=== PATIENT | female | born 1990 | race Caucasian/White ===

== ENCOUNTER → 2016-06-11 | Outpatient (CLI) | payer MEDICAID ==
--- NOTE | 2016-06-11 17:51 | Diagnostic Imaging Report ---
EXAMINATION: OB ultrasound. INDICATION: survey. FINDINGS: heart rate is 158 beats per minute. The placenta is posterior. No placenta previa. The cervix is long and closed. No ventriculomegaly. The four-chamber view appears unremarkable. Posterior fossa appear unremarkable. Cord insertion, kidneys, bladder and two umbilical arteries are demonstrated. The upper and mid spine appear unremarkable. The lower spine is not well seen. growth parameters are biparietal diameter at 21 weeks and 0 days, head circumference at 20 weeks and 6 days, abdominal circumference at 21 weeks and femur length also at 21 weeks averaging at 21 weeks and 0 days. This is compatible with gestational age of 20 weeks and 6 days based provided JORGE of 10/23/[address] Tuttle. IMPRESSION: The lower spine is not well seen. Short-term followup is recommended. Dictated by: Dictated on workstation # [id number]
== END ==
LOC: RAD 12:52
PROVIDERS: ATTEND Obstetrics & Gynecology
DX: Z34.92 Encounter for supervision of normal pregnancy, unspecified, second trimester (principal)
CPT/HCPCS: 76805

== ENCOUNTER 2016-10-08 11:32 | Inpatient (IN) | payer MEDICAID ==
[~2016-10-08] VITALS: Ht 167.6 cm; Wt 103.0 kg
[2016-10-08] VITALS (20 sets, daily range): BP systolic 123–163; BP diastolic 69–112
[2016-10-08] MEDS ORDERED: MINERAL OIL CONCENTRATE 99.9% 15 ML UDC TOP PRN (12:15)
[2016-10-08] MEDS ORDERED: MISOPROSTOL 100 MCG (CYTOTEC) TAB PO ONE (12:15)
[2016-10-08] MEDS ORDERED: TERBUTALINE INJ 1 MG/ML (BRETHINE) AMP SC PRN (12:15)
[2016-10-08 13:14] LABS: BASOPHILS % (AUTO) 0 % (0-10); EOSINOPHILS # (AUTO) 0.2 10^3/uL (0.0-0.3); EOSINOPHILS % (AUTO) 2 % (0-10); LYMPHOCYTES # (AUTO) 1.8 X 10^3 (1.0-4.0); LYMPHOCYTES % (AUTO) 15 % (12-44); MEAN CORPUSCULAR HEMOGLOBIN 31 PG (25-34); MEAN CORPUSCULAR HGB CONC 33 G/DL (32-36); MEAN CORPUSCULAR VOLUME 93 FL (80-99); MEAN PLATELET VOLUME 9.4 FL (7.4-10.4); MONOCYTES # (AUTO) 0.5 X 10^3 (0.0-1.0); MONOCYTES % (AUTO) 5 % (0-12); NEUTROPHILS # (AUTO) 9.3 X 10^3 (1.8-7.8); NEUTROPHILS % (AUTO) 78 % (42-75); PLATELET COUNT 231 10^3/uL (130-400); RED BLOOD COUNT 3.71 10^6/uL (4.35-5.85); RED CELL DISTRIBUTION WIDTH 15.3 % (10.0-14.5); WHITE BLOOD COUNT 11.9 10^3/uL (4.3-11.0)
[2016-10-08] MEDS: D5 LR IV SOLUTION 1,000 ML IV SCH ×3 (13:23→22:55)
[2016-10-08 13:32] LABS: ALANINE AMINOTRANSFERASE 24 U/L (0-55); ALBUMIN 3.1 GM/DL (3.2-4.5); ANION GAP 9 MMOL/L (5-14); ASPARTATE AMINO TRANSFERASE 15 U/L (5-34); BILIRUBIN,TOTAL 0.3 MG/DL (0.1-1.0); BLOOD UREA NITROGEN 9 MG/DL (7-18); BUN/CREATININE RATIO 11; CALCIUM 9.2 MG/DL (8.5-10.1); CARBON DIOXIDE 22 MMOL/L (21-32); CHLORIDE 107 MMOL/L (98-107); GFR ESTIMATED > 60; GLUCOSE 130 MG/DL (70-105); POTASSIUM 3.9 MMOL/L (3.6-5.0); SODIUM 138 MMOL/L (135-145); TOTAL PROTEIN 5.8 GM/DL (6.4-8.2)
[2016-10-08] MEDS ORDERED: D5 LR IV SOLUTION 1,000 ML IV SCH (13:45)
[2016-10-08] MEDS: CATHETER FLUSH 10 ML SYR IV SCH ×2 (14:00→22:00)
[2016-10-08] MEDS: MISOPROSTOL 100 MCG (CYTOTEC) TAB PO SCH (17:55)
[2016-10-09] VITALS (50 sets, daily range): BP systolic 104–183; BP diastolic 61–95
[2016-10-09] MEDS: MISOPROSTOL 100 MCG (CYTOTEC) TAB PO SCH ×4 (00:21→08:40)
[2016-10-09] MEDS: CATHETER FLUSH 10 ML SYR IV SCH (06:18)
[2016-10-09] MEDS: D5 LR IV SOLUTION 1,000 ML IV SCH ×3 (06:56→14:58)
[2016-10-09] MEDS ORDERED: fentaNYL INJECTION 100 MCG/2 ML AMP IVP PRN (12:30)
[2016-10-09] MEDS ORDERED: LACTATED RINGERS 1,000 ML IV ONE ×2 (12:55→16:39)
[2016-10-09] MEDS ORDERED: SUFENTA 0.6MCG/ML BUPIVA 0.125 100 ML ONE (12:55)
[2016-10-09] MEDS: OXYTOCIN/NORMAL SALINE 500 ML IV SCH ×2 (13:03→20:16)
[2016-10-09] MEDS ORDERED: EPIDURAL (SUFENTA 0.6MCG/ML BUPIVA 0.125%) 100 ML BAG EPI SCH (16:45)
[2016-10-09] MEDS ORDERED: ONDANSETRON 4 MG/2 ML (SDV) Z0FRAN IV PRN (16:45)
[2016-10-09] MEDS ORDERED: NALOXONE 0.4 MG/ML 1 ML (NARCAN) VIAL IV PRN (16:45)
[2016-10-09] MEDS ORDERED: FAMOTIDINE 20MG/2ML IV (PEPCID) IV NR (17:15)
[2016-10-09] MEDS ORDERED: CATHETER FLUSH 10 ML SYR IV PRN (17:15)
[2016-10-09] MEDS ORDERED: CITRIC ACID/SOB CIT (BICITRA) 30 ML UDC PO NR (17:15)
[2016-10-09] MEDS ORDERED: LACTATED RINGERS 1,000 ML IV PRN ×2 (17:15)
[2016-10-09] MEDS ORDERED: METOCLOPRAMIDE INJ 10 MG/2 ML (REGLAN) IV NR (17:15)
--- NOTE | 2016-10-09 17:22 | Progress Note-Standard ---
Standard Progress Note Progress Notes/Assess & Plan Date Seen by Provider: Oct 09, 2016 Time Seen by Provider: 15:15 Progress/Assessment & Plan PAtient has had 24 hours of misoprostol. Induced for preeclampsia. AROM at 1300 of copious clear fluid. Baby was very high but vertex to oblique. Now on exam she is transverse/breech. BP 138/84 well being reassuring. Contractions q 4 hours. Will plan primary section. Risks associated with this are bleeding, infection, injury to bowel bladder and ureter. Consent signed. Ancef and Zithromax given due to ROM and prophylaxis. Peds - [facility] SHARATH FAUST DO Oct 09, 2016 5:22 pm
[2016-10-09] MEDS ORDERED: fentaNYL INJECTION 100 MCG/2 ML AMP ONE (17:29)
[2016-10-09] MEDS ORDERED: LIDOCAINE PF 2% 5 ML (XYLOCAINE) VIAL ONE (17:29)
[2016-10-09] MEDS ORDERED: BUPIVACAINE 0.25% 30 ML (SENSORCAINE) VIAL ONE (17:29)
[2016-10-09] MEDS ORDERED: BUPIVACAINE 0.5% 30 ML (SENSORCAINE) VIAL ONE (17:29)
[2016-10-09] MEDS ORDERED: AZITHROMYCIN INJECTION 500 MG in NS (IVPB) 250 ML IV NR (17:30)
[2016-10-09] MEDS ORDERED: ceFAZolin 2 GM/50 ML NS 50 ML IV NR (17:30)
[2016-10-09] MEDS ORDERED: OXYTOCIN/NORMAL SALINE 500 ML IV ONE (18:33)
[2016-10-09] MEDS ORDERED: TETANUS,DIPTH,PERTUSS P/F (BOOSTRIX) 0.5 ML VIAL IM SCH (19:00)
[2016-10-09] MEDS ORDERED: MEASLES,MUMPS,RUBELLA 1 EA INJ SC SCH (19:00)
--- NOTE | 2016-10-09 19:04 | Cesarean Section Operative ---
Procedure Procedure Note Pre-operative Diagnosis: Linn Vaca is a 26 /Para 1/ , Gestational Age 38 weeks, preeclampsia, malpresentation Post-operative Diagnosis: same [ Procedure: [primary low transverse section with J incision on the left Physician: SHARATH FAUST Estimated blood loss: 600 mL Disposition: stable Anesthesia: Epidural Findings: Viable female , Apgars 3/7/8, weight 7#8oz, intact placenta, 3vc, normal appearing uterus, tubes, and ovaries. Indications:Linn Vaca is a 26 /Para 1/ ,Gestational Age 38 weeks , preeclampsia, malpresentation. Patient was admitted for induction/ cervical ripening from clinic on 10/08/16. BP in clinic 155/85 and 2+ proteinuria. She had misoprostol for 24 hours and then had AROM at approximately 1230. At that time, position was thought to be vertex/oblique. She was started on pitocin and made progress but when examined at approximatley 1700, there was an abnormal presentation. Bedside US showed head to be on the left in a transverse, back anterior position and the right elbow was presenting. Procedure Details: The patient was seen in pre-op and the procedure was discussed with the patient in full, including the risks, benefits, and alternatives. All questions were answered. The patient was taken to the operating room and a time out was performed, verifying patient and procedure. After epidural anesthesia was redosed by the anesthsia providers, the patient was placed in the dorsal supine with leftward tilt for uterine displacement.~ Her abdomen was then prepped and draped in the typical sterile fashion. A Pfannenstiel skin incision was made using a scalpel and carried down through the underlying fascia. The fascia was incised in the midline and tented up using Tyesha clamps. On both the inferior and superior fascia side the rectus muscle was dissected off bluntly and sharply using Mccormick scissors. The peritoneum was identified and entered bluntly in the midline. This was then stretched laterally using manual strength. After entering the abdominal cavity and confirming lack of intraperitoneal adhesions, a extra large Johnson retractor was placed and the lower uterine segment was visualized. A scalpel was utilized to make a low transverse uterine incision. The back and elbow were presenting so the baby was reduced to assist delivery of the baby. I could not deliver the baby in the breech presentation but was finally able to rotate the head to be delivered. I then made a J incision from the left side of the uterine incision. I placed a silastic suction and then The 's head was grasped and brought to the level of the incision. Fundal pressure was applied and was delivered without difficulty. Mouth and nares were suctioned with bulb suction. After the umbilical cord was clamped and cut, the infant was handed off to the pediatric staff. A sample of cord blood was then obtained. Cord gas was sent. The placenta was delivered intact via uterine massage. The uterus was exteriorized and cleared of all clots and debris. The J portion of the incision was closed in 3 running layers and then uterine incision was closed using 0 Vicryl in a running fashion. A second imbricated layer was placed using 0 Vicryl in a running fashion as well. The uterus was flexed forward and the posterior rectouterine space was inspected and cleared of all clots and debris. Again the hysterotomy site was examined and hemostasis was observed. The bilateral tubes and ovaries appeared normal. The uterus was placed back into the abdominal cavity and abdominal gutters were cleared of all clots and debris. A final check of the uterine incision showed it to be hemostatic. The peritoneum was closed using 3-0 Vicryl in a running fashion. The fascia was closed with 0 Vicryl in a running fashion. The subcutaneous space was hemostatic , and irrigated. The subcutaneous space was closed with 3-0 Vicryl in several single interrupted stitches. The skin was then closed using 4-0 Monocryl in a running subcuticular fashion. The skin edges were reapproximated together and were hemostatic. A pressure dressing was applied. All sponge, lap and needle counts were correct at the end of the procedure per nursing. Vitals - Labs Vital Signs - I&O Vital Signs Date Time Temp Pulse Resp B/P (MAP) Pulse Ox O2 Delivery O2 Flow Rate FiO2 10/09/16 14:25 84 20 150/80 Room Air 10/09/16 14:20 96 20 136/91 Room Air 10/09/16 14:05 85 20 142/86 Room Air 10/09/16 13:50 88 20 147/85 Room Air 10/09/16 13:35 89 20 129/83 Room Air 10/09/16 13:25 79 20 153/93 Room Air 10/09/16 13:00 83 20 140/90 Room Air 10/09/16 12:30 85 20 124/87 Room Air 10/09/16 12:05 89 20 142/93 Room Air 10/09/16 12:00 96.7 104 20 136/94 Room Air 10/09/16 10:30 91 20 128/88 Room Air 10/09/16 10:00 89 20 139/86 Room Air 10/09/16 09:30 90 20 117/82 Room Air 10/09/16 09:00 103 20 128/88 Room Air 10/09/16 08:30 84 20 135/82 Room Air 10/09/16 08:00 88 20 131/93 Room Air 10/09/16 07:00 97.4 95 18 140/85 Room Air 10/09/16 05:32 84 18 127/90 Room Air 10/09/16 05:04 79 18 137/90 Room Air 10/09/16 04:15 82 18 139/87 Room Air 10/09/16 04:03 96.0 100 18 138/91 Room Air 10/09/16 03:30 95 18 121/76 Room Air 10/09/16 03:00 83 18 142/83 Room Air 10/09/16 02:30 84 18 134/84 Room Air 10/09/16 02:00 82 18 133/76 Room Air 10/09/16 01:30 89 18 129/82 Room Air 10/09/16 01:00 83 18 137/79 Room Air 10/09/16 00:23 100 18 125/78 Room Air 10/09/16 00:17 96.2 90 18 127/76 Room Air 10/08/16 23:29 94 18 131/92 Room Air 10/08/16 22:17 88 18 135/78 Room Air 10/08/16 22:05 97 18 138/82 Room Air 10/08/16 21:33 101 18 131/80 Room Air 10/08/16 21:05 96 20 127/83 Room Air 10/08/16 20:34 99 20 138/88 Room Air 10/08/16 20:04 94 18 128/75 Room Air 10/08/16 19:33 96.6 96 20 125/77 Room Air 10/08/16 19:00 99 20 136/76 Room Air I & O 10/09/16 07:00 Intake Total 2400 ml Balance 2400 ml SHARATH FAUST DO Oct 09, 2016 19:04
[2016-10-09] MEDS ORDERED: HYDROcodone/APAP 5 MG/325 MG (LORTAB) TAB PO PRN (19:15)
[2016-10-09] MEDS ORDERED: HYDROmorphone (DILAUDID) 2 MG/ML VIAL IVP PRN (19:15)
[2016-10-09] MEDS ORDERED: CATHETER FLUSH 10 ML SYR IV SCH (22:00)
[2016-10-10] VITALS: BP 118/78
[2016-10-10] MEDS: KETOROLAC 30 MG/ML VIAL IVP SCH ×3 (00:01→11:51)
[2016-10-10 04:35] VITALS: BP 125/74
[2016-10-10 06:44] LABS: BASOPHILS % (AUTO) 0 % (0-10); EOSINOPHILS # (AUTO) 0.1 10^3/uL (0.0-0.3); EOSINOPHILS % (AUTO) 1 % (0-10); LYMPHOCYTES # (AUTO) 2.6 X 10^3 (1.0-4.0); LYMPHOCYTES % (AUTO) 19 % (12-44); MEAN CORPUSCULAR HEMOGLOBIN 30 PG (25-34); MEAN CORPUSCULAR HGB CONC 32 G/DL (32-36); MEAN CORPUSCULAR VOLUME 95 FL (80-99); MEAN PLATELET VOLUME 9.6 FL (7.4-10.4); MONOCYTES % (AUTO) 8 % (0-12); NEUTROPHILS # (AUTO) 9.7 X 10^3 (1.8-7.8); NEUTROPHILS % (AUTO) 72 % (42-75); PLATELET COUNT 211 10^3/uL (130-400); RED BLOOD COUNT 3.19 10^6/uL (4.35-5.85); RED CELL DISTRIBUTION WIDTH 15.6 % (10.0-14.5); WHITE BLOOD COUNT 13.4 10^3/uL (4.3-11.0)
--- NOTE | 2016-10-10 08:55 | Discharge Inst-Women's Service ---
Discharge Inst-Women's Serv Depart Medication/Instructions New, Converted or Re-Newed RX: RX on Chart Consults/Follow Up Additional Follow Up: Yes Orders/Referrals Dr. Tuttle in 7-10 days and in 6 weeks. Activity Activity: Activity as Tolerated Driving Instructions: No Driving for 1 Week NO SMOKING: NO SMOKING Nothing Inside Vagina: No Douching, No [place], No Tampons Diet Discharge Diet: No Restrictions Symptoms to Report to : Bleeding Excessive, Pain Increased, Fever Over 101 Degrees F, Vaginal Bleeding Increase, Questions/Concerns For Any Problems or Questions: Contact Your Physician Skin/Wound Care Infection Signs and Symptoms: Increased Redness, Foul Odor of Wound, Increased Drainage, Skin Itchy or Has a Rash, Increased Swelling, Temperature Above 101 F Operative Area Clean and Dry: Keep Incision Clean/Dry Stitches/Inderjit/Dermabond: Dermabond, Care of Stitches Bathing Instructions: OSITO Wolf DO Oct 10, 2016 08:55
[2016-10-10] MEDS ORDERED: IBUP-1773 PO (08:57)
[2016-10-10] MEDS ORDERED: FERR-74 PO (08:57)
[2016-10-10] MEDS ORDERED: HYDR-3812 PO (08:57)
[2016-10-10] MEDS ORDERED: DOCU100C37 PO (08:57)
--- NOTE | 2016-10-10 09:02 | Progress Note-Standard ---
Standard Progress Note Progress Notes/Assess & Plan Date Seen by Provider: Oct 10, 2016 Time Seen by Provider: 08:50 Progress/Assessment & Plan Patient doing well this AM without complaint. Denies heavy lochia. Ambulating and voiding freely, ma out this morning. Vital Sign - Last 24 Hours 10/09/16 10/09/16 10/09/16 10/09/16 09:30 10:00 10:30 12:00 Temp 96.7 Pulse 90 89 91 104 Resp 20 20 20 20 B/P (MAP) 117/82 139/86 128/88 136/94 O2 Delivery Room Air Room Air Room Air Room Air 10/09/16 10/09/16 10/09/16 10/09/16 12:05 12:30 13:00 13:25 Pulse 89 85 83 79 Resp 20 20 20 20 B/P (MAP) 142/93 124/87 140/90 153/93 O2 Delivery Room Air Room Air Room Air Room Air 10/09/16 10/09/16 10/09/16 10/09/16 13:35 13:50 14:05 14:20 Pulse 89 88 85 96 Resp 20 20 20 20 B/P (MAP) 129/83 147/85 142/86 136/91 O2 Delivery Room Air Room Air Room Air Room Air 10/09/16 10/09/16 10/09/16 10/09/16 14:25 14:45 15:00 15:15 Pulse 84 82 86 77 Resp 20 20 20 20 B/P (MAP) 150/80 138/82 155/86 157/79 O2 Delivery Room Air Room Air Room Air Room Air 10/09/16 10/09/16 10/09/16 10/09/16 15:30 15:45 16:00 16:23 Pulse 93 85 85 88 Resp 20 20 20 20 B/P (MAP) 139/93 144/95 123/88 143/82 O2 Delivery Room Air Room Air Room Air Room Air 10/09/16 10/09/16 10/09/16 10/09/16 16:27 16:30 16:35 16:40 Temp 98.6 Pulse 96 96 116 113 Resp 18 18 16 16 B/P (MAP) 146/82 148/93 152/61 117/79 Pulse Ox 98 98 99 O2 Delivery Room Air Room Air Room Air Room Air 710/09/16 10/09/16 10/09/16 16:45 16:50 16:55 17:00 Pulse 130 121 114 120 Resp 16 16 16 16 B/P (MAP) 124/70 176/67 134/62 136/84 Pulse Ox 99 99 100 100 O2 Delivery Room Air Room Air Room Air Room Air 10/09/16 10/09/16 10/09/16 10/09/16 17:05 17:10 17:15 17:30 Pulse 131 121 120 112 Resp 18 18 20 18 B/P (MAP) 138/65 151/86 144/80 183/93 Pulse Ox 100 100 99 O2 Delivery Room Air Room Air Room Air Room Air 10/09/16 10/09/16 10/10/16 10/10/16 17:45 20:05 00:00 04:35 Temp 98.4 98.0 98.2 Pulse 110 93 107 106 Resp 18 18 18 18 B/P (MAP) 129/78 104/72 118/78 125/74 Pulse Ox 98 97 97 O2 Delivery Room Air Room Air Room Air Room Air Intake and Output 10/09/16 10/09/16 10/10/16 15:00 23:00 07:00 Intake Total 1000 ml 650 ml 1250 ml Output Total 750 ml 425 ml Balance 1000 ml -100 ml 825 ml Incision: c/d/i Laboratory Tests Test 10/10/16 06:23 Range/Units White Blood Count 13.4 H 4.3-11.0 10^3/uL Red Blood Count 3.19 L 4.35-5.85 10^6/uL Hemoglobin 9.7 L 11.5-16.0 G/DL Hematocrit 30 L 35-52 % Mean Corpuscular Volume 95 80-99 FL Mean Corpuscular Hemoglobin 30 25-34 PG Mean Corpuscular Hemoglobin Concent 32 32-36 G/DL Red Cell Distribution Width 15.6 H 10.0-14.5 % Platelet Count 211 130-400 10^3/uL Mean Platelet Volume 9.6 7.4-10.4 FL Neutrophils (%) (Auto) 72 42-75 % Lymphocytes (%) (Auto) 19 12-44 % Monocytes (%) (Auto) 8 0-12 % Eosinophils (%) (Auto) 1 0-10 % Basophils (%) (Auto) 0 0-10 % Neutrophils # (Auto) 9.7 H 1.8-7.8 X 10^3 Lymphocytes # (Auto) 2.6 1.0-4.0 X 10^3 Monocytes # (Auto) 1.0 0.0-1.0 X 10^3 Eosinophils # (Auto) 0.1 0.0-0.3 10^3/uL Basophils # (Auto) 0.0 0.0-0.1 10^3/uL Diagnosis: POD 1 PLTCS Acute blood loss anemia Preeclampsia- bp now WNL since delivery P: Continue PO care If continues to do well will consider dc tomorrow OSITO SUMMERS DO Oct 10, 2016 09:02
[2016-10-10 09:18] VITALS: BP 123/79
[2016-10-10] MEDS: FERROUS SULF 325 MG (IRON) TAB PO SCH (09:22)
[2016-10-10] MEDS: DOCUSATE SODIUM 100 MG (COLACE) CAP PO SCH ×2 (09:22→19:36)
[2016-10-10] MEDS: PRENATAL VITAMIN 1 EA TAB PO SCH (09:22)
[2016-10-10 11:47] VITALS: BP 126/86
[2016-10-10 17:52] VITALS: BP 124/87
[2016-10-10] MEDS: IBUPROFEN 600 MG (MOTRIN) TAB PO PRN (17:55)
[2016-10-10] MEDS ORDERED: IBUPROFEN 800 MG (MOTRIN) TAB PO SCH (19:00)
[2016-10-10 19:35] VITALS: BP 139/86
[2016-10-11 02:10] VITALS: BP 125/79
[2016-10-11] MEDS: IBUPROFEN 600 MG (MOTRIN) TAB PO PRN ×2 (06:06)
--- NOTE | 2016-10-11 08:40 | Progress Note-Standard ---
Standard Progress Note Progress Notes/Assess & Plan Date Seen by Provider: Oct 11, 2016 Time Seen by Provider: 08:25 Progress/Assessment & Plan Patient doing well this AM without complaint. Denies heavy lochia. Ambulating and voiding freely. Vital Sign - Last 24 Hours 10/10/16 10/10/16 10/10/16 10/10/16 09:18 11:47 17:52 19:35 Temp 97.0 97.4 96.7 98.2 Pulse 97 91 87 91 Resp 18 18 18 18 B/P (MAP) 123/79 126/86 124/87 139/86 Pulse Ox 94 96 98 O2 Delivery Room Air Room Air Room Air Room Air 10/11/16 02:10 Temp 97.8 Pulse 92 Resp 18 B/P (MAP) 125/79 Pulse Ox 97 O2 Delivery Room Air Intake and Output 10/10/16 10/10/16 10/11/16 15:00 23:00 07:00 Intake Total 1240 ml 1050 ml Output Total 200 ml 1250 ml Balance 1040 ml -200 ml Incision: c/d/i Diagnosis: POD 2 PLTCS Acute blood loss anemia P: Continue PO care discharge today with pp/po precautions OSITO SUMMERS DO Oct 11, 2016 8:40 am
[2016-10-11 09:15] VITALS: BP 114/80
[2016-10-11] MEDS: FERROUS SULF 325 MG (IRON) TAB PO SCH (09:16)
[2016-10-11] MEDS: PRENATAL VITAMIN 1 EA TAB PO SCH (09:16)
[2016-10-11] MEDS: DOCUSATE SODIUM 100 MG (COLACE) CAP PO SCH (09:16)
--- NOTE | 2016-10-28 09:58 | Discharge Summary ---
Diagnosis/Chief Complaint Date of Admission Oct 08, 2016 at 11:32 Date of Discharge Oct 11, 2016 at 13:00 Discharge Date: Oct 11, 2016 Discharge Time: 13:00 Admission Diagnosis Admission Diagnosis 38 week IUP, preeclampsia, malpresentation Discharge Diagnosis Same Post op day 2 primary low transverse section Reason Hospital Visit Delivery Discharge Summary Procedures: Primary low transverse section Discharge Physical Examination Allergies: Coded Allergies: No Known Drug Allergies (Unverified , 07/27/11) General Appearance: Alert, Oriented X3 Cardiovascular: Regular Rate Abdominal: Normal Bowel Sounds Hospital Course Patient was admitted for induction due to worsening preeclampsia 38 weeks. Failed induction followed by primary was performed. Patient's postoperative course this was fairly retain her blood pressures remained relatively stable however labile at times. She did have postoperative acute blood loss anemia. And was started on iron postop day one. Pain was well- controlled postop day 1. The patient was continued to ambulate and she was voiding freely. On postoperative day 2 blood pressures continue to be fairly stable, pain was well-controlled, she was ambulating and voiding freely. Discharge was facilitated on postop day 2 due to clinical stability. Routine postoperative and precautions reviewed with the patient as well as preeclampsia precautions. Discussion & Recommendations Follow-up with Dr. Tuttle in 1 week for incision check and blood pressure evaluation. 6 week evaluation scheduled as well Discharge Condition at discharge Stable Instructions to patient/family Please see electonic discharge instructions given to patient. Discharge Medications Reviewed and agree with Discharge Medication list on patient's Discharge Instruction sheet Clinical Quality Measures DVT/VTE Risk/Contraindication: Risk Factor Score Per Nursin RFS Level Per Nursing on Admit: 1=Low/No VTE PPX OSITO SUMMERS DO Oct 28, 2016 09:58
== END 2016-10-11 13:00 | disposition home or self-care (01) | DRG 765 ==
LOC: LDRP 11:32
PROVIDERS: ADMIT Obstetrics & Gynecology; ATTEND Obstetrics & Gynecology
PROC: 3E0P7GC Introduction of Other Therapeutic Substance into Female Reproductive, Via Natural or Artificial Opening (ICD-10-PCS; 2016-10-08)
PROC: 10D00Z1 Extraction of Products of Conception, Low, Open Approach (ICD-10-PCS; principal; 2016-10-09 17:54)
DX: O14.94 Unspecified pre-eclampsia, complicating childbirth (principal); O90.81 Anemia of the puerperium; D62 Acute posthemorrhagic anemia; Z3A.38 38 weeks gestation of pregnancy; Z37.0 Single live birth; Z23 Encounter for immunization
CPT/HCPCS: 36415; 80053; 85025; 86850; 86900; 86901; 88307; 90707; 90715; 94664

== ENCOUNTER 2019-05-13 10:35 | Day surgery (SDC) | payer MEDICAID ==
[2019-05-13] VITALS (8 sets, daily range): BP systolic 128–138; BP diastolic 79–100
[~2019-05-13] VITALS: Ht 172.7 cm; Wt 84.8 kg
[~2019-05-13 10:35] MED LIST: ACHD5005 PO; DOCU100C37 PO; FERR325T18 PO; IBUP-1773 PO
[2019-05-13] MEDS ORDERED: NS IV 1000 ML 1,000 ML IV SCH (11:00)
[2019-05-13 11:01] LABS: BASOPHILS % (AUTO) 0 % (0-10); CLARITY,URINE CLEAR; COLOR,URINE YELLOW; EOSINOPHILS % (AUTO) 0 % (0-10); GLUCOSE, URINE (UA) NEGATIVE (NEGATIVE); HEMATOCRIT 44 % (35-52); HEMOGLOBIN 14.7 G/DL (11.5-16.0); KETONES,URINE 1+ (NEGATIVE); LEUKOCYTE ESTERASE ,URINE TRACE (NEGATIVE); LYMPHOCYTES # (AUTO) 1.6 X 10^3 (1.0-4.0); LYMPHOCYTES % (AUTO) 11 % (12-44); MEAN CORPUSCULAR HEMOGLOBIN 30 PG (25-34); MEAN CORPUSCULAR HGB CONC 33 G/DL (32-36); MEAN CORPUSCULAR VOLUME 90 FL (80-99); MEAN PLATELET VOLUME 9.5 FL (7.4-10.4); MONOCYTES # (AUTO) 1.1 X 10^3 (0.0-1.0); MONOCYTES % (AUTO) 7 % (0-12); NEUTROPHILS # (AUTO) 12.8 X 10^3 (1.8-7.8); NEUTROPHILS % (AUTO) 83 % (42-75); NITRITE,URINE NEGATIVE (NEGATIVE); PH,URINE 5.5 (5-9); PLATELET COUNT 383 10^3/uL (130-400); PROTEIN,URINE 2+ (NEGATIVE); RED CELL DISTRIBUTION WIDTH 12.9 % (10.0-14.5); WHITE BLOOD COUNT 15.6 10^3/uL (4.3-11.0)
--- NOTE | 2019-05-13 11:02 | ED GI ---
General Chief Complaint: Abdominal/GI Problems Stated Complaint: N/V Nursing Triage Note: Pt amb to rm 7 with complaint of difficulty swallwoing since thursday. states has been dealing with similar symptoms for a year. Sepsis Screen: No Definite Risk Source of Information: Patient Exam Limitations: No Limitations History of Present Illness Date Seen by Provider: May 13, 2019 Time Seen by Provider: 10:57 Initial Comments To ER per private vehicle accompanied by mother with reports of difficulty swallowing and regurgitation since Thursday (today is Thursday). She's not had any solid food since Thursday, up until today even water wouldn't go down. She states that she would swallow it, it would sit for about 2 or 3 minutes and she would regurgitate it. She denies any nausea or abdominal pain, simply feels like it will go down. Mother reports that she's been having difficulty swallowing foods over the course of the past year. No fevers or chills. She did develop some low back pain today. No dysuria. She went to the clinic yesterday and received a steroid shot as her throat was reddened and this was believed to be the cause of her troubles. Timing/Duration: Getting Worse Severity/Quality: Moderate Radiation: No Radiation Activities at Onset: None Associated Symptoms: Back Pain, Nausea/Vomiting Allergies and Home Medications Allergies Coded Allergies: No Known Drug Allergies (Unverified , 07/27/11) Home Medications Ferrous Sulfate 325 Mg Tablet, 325 MG PO DAILY@0700 Prescribed by: OSITO SUMMERS on 10/10/16 0857 Pantoprazole Sodium 40 Mg Tablet.dr, 40 MG PO DAILY Prescribed by: ED MARTIN on 05/13/19 1557 Sucralfate 1 Gm Tablet, 1 GM PO QID Prescribed by: ED MARTIN on 05/13/19 1557 Sulfamethoxazole/Trimethoprim 1 Each Tablet, 1 EACH PO BID Prescribed by: ED MARTIN on 05/13/19 1600 Patient Home Medication List Home Medication List Reviewed: Yes Review of Systems Review of Systems Constitutional: see HPI; No chills, No fever EENTM: No Symptoms Reported Respiratory: No Symptoms Reported Cardiovascular: No Symptoms Reported Gastrointestinal: See HPI, Difficulty Swallowing, Poor Fluid Intake Genitourinary: No Symptoms Reported Musculoskeletal: see HPI, back pain Skin: no symptoms reported Psychiatric/Neurological: No Symptoms Reported Endocrine: No Symptoms Reported Hematologic/Lymphatic: No Symptoms Reported Past Nymkcee-Ecejgf-Exztkl Hx Patient Social History Alcohol Use: Denies Use Recreational Drug Use: No Smoking Status: Never a Smoker Recent Foreign Travel: No Contact w/Someone Who Travel: No Recent Infectious Disease Expo: No Recent Hopitalizations: No Immunizations Up To Date PED Vaccines UTD: Yes Seasonal Allergies Seasonal Allergies: No Past Medical History Surgeries: Yes Orthopedic Respiratory: No Cardiac: No Neurological: No Genitourinary: No Gastrointestinal: No Musculoskeletal: No Endocrine: No HEENT: No Cancer: No Psychosocial: No Integumentary: No Blood Disorders: No Adverse Reaction/Blood Tranf: No Family Medical History Diabetes mellitus 19 FATHER (father.) Physical Exam Vital Signs Vital Signs - First Documented 05/13/19 10:43 Temp 36.8 Pulse 111 Resp 18 B/P (MAP) 136/99 (111) Pulse Ox 96 O2 Delivery Room Air Capillary Refill : Less Than 3 Seconds Height/Weight/BMI Height: 5'6.00" Weight: 227lbs. 0.0oz. 102.958715st; 28.00 BMI Method: General Appearance: WD/WN, no apparent distress HEENT: PERRL/EOMI, normal ENT inspection Neck: non-tender, full range of motion Respiratory: normal breath sounds, no respiratory distress, no accessory muscle use Cardiovascular: no murmur, tachycardia Gastrointestinal: normal bowel sounds, non tender, soft Extremities: normal range of motion Neurologic/Psychiatric: alert, normal mood/affect, oriented x 3 Skin: normal color, warm/dry Exam Comments I've given her a glass of water To drink, this water stay down for about 15 minutes before regurgitation. She swallows her secretions without regurgitation. Progress/Results/Core Measures Results/Orders Lab Results Laboratory Tests Test 05/13/19 10:52 Range/Units White Blood Count 15.6 H 4.3-11.0 10^3/uL Red Blood Count 4.89 4.35-5.85 10^6/uL Hemoglobin 14.7 11.5-16.0 G/DL Hematocrit 44 35-52 % Mean Corpuscular Volume 90 80-99 FL Mean Corpuscular Hemoglobin 30 25-34 PG Mean Corpuscular Hemoglobin Concent 33 32-36 G/DL Red Cell Distribution Width 12.9 10.0-14.5 % Platelet Count 383 130-400 10^3/uL Mean Platelet Volume 9.5 7.4-10.4 FL Neutrophils (%) (Auto) 83 H 42-75 % Lymphocytes (%) (Auto) 11 L 12-44 % Monocytes (%) (Auto) 7 0-12 % Eosinophils (%) (Auto) 0 0-10 % Basophils (%) (Auto) 0 0-10 % Neutrophils # (Auto) 12.8 H 1.8-7.8 X 10^3 Lymphocytes # (Auto) 1.6 1.0-4.0 X 10^3 Monocytes # (Auto) 1.1 H 0.0-1.0 X 10^3 Eosinophils # (Auto) 0.0 0.0-0.3 10^3/uL Basophils # (Auto) 0.0 0.0-0.1 10^3/uL Neutrophils % (Manual) 87 % Lymphocytes % (Manual) 8 % Monocytes % (Manual) 2 % Eosinophils % (Manual) 0 % Basophils % (Manual) 0 % Band Neutrophils 3 % Blood Morphology Comment NORMAL Urine Color YELLOW Urine Clarity CLEAR Urine pH 5.5 5-9 Urine Specific [place] >=1.030 1.016-1.022 Urine Protein 2+ H NEGATIVE Urine Glucose (UA) NEGATIVE NEGATIVE Urine Ketones 1+ H NEGATIVE Urine Nitrite NEGATIVE NEGATIVE Urine Bilirubin 2+ H NEGATIVE Urine Urobilinogen 1.0 < = 1.0 MG/DL Urine Leukocyte Esterase TRACE H NEGATIVE Urine RBC (Auto) 3+ H NEGATIVE Urine RBC 2-5 H /HPF Urine WBC 5-10 H /HPF Urine Squamous Epithelial Cells 25-50 H /HPF Urine Crystals NONE /LPF Urine Bacteria LARGE H /HPF Urine Casts NONE /LPF Urine Mucus MODERATE H /LPF Urine Culture Indicated YES Sodium Level 142 135-145 MMOL/L Potassium Level 4.4 3.6-5.0 MMOL/L Chloride Level 105 98-107 MMOL/L Carbon Dioxide Level 22 21-32 MMOL/L Anion Gap 15 H 5-14 MMOL/L Blood Urea Nitrogen 22 H 7-18 MG/DL Creatinine 1.17 0.60-1.30 MG/DL Estimat Glomerular Filtration Rate 54 BUN/Creatinine Ratio 19 Glucose Level 113 H 70-105 MG/DL Calcium Level 10.5 H 8.5-10.1 MG/DL Corrected Calcium 8.5-10.1 MG/DL Total Bilirubin 1.2 H 0.1-1.0 MG/DL Aspartate Amino Transf (AST/SGOT) 20 5-34 U/L Alanine Aminotransferase (ALT/SGPT) 36 0-55 U/L Alkaline Phosphatase 72 40-136 U/L Total Protein 8.7 H 6.4-8.2 GM/DL Albumin 5.0 H 3.2-4.5 GM/DL Serum Test, Qualitative NEGATIVE NEGATIVE My Orders Orders - ROSEMARIE WORLEY APRN Ns Iv 1000 Ml (Sodium Chloride 0.9%) (05/13/19 11:00) Barium Swallow-Esophagram (05/13/19 10:54) Ed Iv/Invasive Line Start (05/13/19 10:56) Cbc With Automated Diff (05/13/19 10:56) Comprehensive Metabolic Panel (05/13/19 10:56) Hcg,Qualitative Serum (05/13/19 10:56) Ua Culture If Indicated (05/13/19 10:56) Manual Differential (05/13/19 10:52) Lactated Ringers (Lr 1000 Ml Iv Solution (05/13/19 11:30) Urine Culture (05/13/19 10:52) Ceftriaxone For Iv Use (Rocephin For I (05/13/19 11:30) Barium For Suspension 96% W/W (Vanilla S (05/13/19 12:30) Barium For Suspension 98% W/W (Vanilla S (05/13/19 12:30) Medications Given in ED Current Medications Medications Dose Ordered Sig/Bertrand Route Start Time Stop Time Status Last Admin Dose Admin Barium Sulfate 310 gm ONCE ONCE PO 05/13/19 12:30 05/13/19 12:31 DC 05/13/19 12:27 25 GM Ceftriaxone Sodium 1000 mg/ Sterile Water 10 ml @ 200 mls/hr ONCE ONCE IV 05/13/19 11:30 05/13/19 11:32 DC 05/13/19 12:59 200 MLS/HR Vital Signs/I&O 05/13/19 10:43 Temp 36.8 Pulse 111 Resp 18 B/P (MAP) 136/99 (111) Pulse Ox 96 O2 Delivery Room Air Blood Pressure Mean: 111 Departure Communication (Admissions) Dr. Martin has seen the patient, will take for endoscopy Impression Primary Impression: Dysphagia Qualified Codes: R13.10 - Dysphagia, unspecified Additional Impression: Urinary tract infection Qualified Codes: N30.01 - Acute cystitis with hematuria Disposition: ADMITTED INPATIENT Condition: Stable Admissions Decision to Admit Reason: Admit from ER (General) Decision to Admit/Date: May 13, 2019 Time/Decision to Admit Time: 12:00 Departure-Patient Inst. Referrals: NO,LOCAL PHYSICIAN (PCP/Family) Primary Care Physician Scripts Sulfamethoxazole/Trimethoprim (Bactrim Ds Tablet) 1 Each Tablet 1 EACH PO BID, #10 TAB Prov: ED MARTIN DO 05/13/19 Sucralfate (Carafate) 1 Gm Tablet 1 GM PO QID, #120 TAB 2 Refills Prov: ED MARTIN DO 05/13/19 Pantoprazole Sodium (Protonix) 40 Mg Tablet.dr 40 MG PO DAILY, #30 TAB 2 Refills Prov: ED MARTIN DO 05/13/19 ROSEMARIE WORLEY APRN May 13, 2019 11:02
[2019-05-13 11:16] LABS: ALANINE AMINOTRANSFERASE 36 U/L (0-55); ALKALINE PHOSPHATASE 72 U/L (40-136); BILIRUBIN,TOTAL 1.2 MG/DL (0.1-1.0); BUN/CREATININE RATIO 19; CALCIUM 10.5 MG/DL (8.5-10.1); CARBON DIOXIDE 22 MMOL/L (21-32); CHLORIDE 105 MMOL/L (98-107); CREATININE SERUM 1.17 MG/DL (0.60-1.30); GFR ESTIMATED 54; GLUCOSE 113 MG/DL (70-105); POTASSIUM 4.4 MMOL/L (3.6-5.0); SODIUM 142 MMOL/L (135-145); TOTAL PROTEIN 8.7 GM/DL (6.4-8.2)
[2019-05-13 11:20] LABS: BACTERIA,URINE LARGE /HPF; BILIRUBIN,URINE 2+ (NEGATIVE); SQUAMOUS EPITHELIAL CELL,UR 25-50 /HPF
[2019-05-13] MEDS ORDERED: LACTATED RINGERS 1,000 ML IV SCH (11:30)
[2019-05-13] MEDS ORDERED: cefTRIAXone FOR IV USE 1,000 MG in WATER (STERILE) FOR INJECTION 10 ML IV ONE (11:30)
[2019-05-13 11:51] LABS: BAND NEUTROPHILS 3 %; BASOPHILS % (MANUAL) 0 %; EOSINOPHILS % (MANUAL) 0 %; LYMPHOCYTES % (MANUAL) 8 %; MONOCYTES % (MANUAL) 2 %; NEUTROPHILS % (MANUAL) 87 %; RBC MORPH NORMAL
[2019-05-13] MEDS ORDERED: BARIUM for suspension 98% w/w (Vanilla Silq High Density) PO ONE (12:30)
[2019-05-13] MEDS ORDERED: BARIUM for suspension 96% w/w (Vanilla Silq Medium Density) PO ONE (12:30)
--- NOTE | 2019-05-13 12:33 | Diagnostic Imaging Report ---
INDICATION: Dysphagia. Patient ingested a small quantity of thin barium and imaging of the esophagus was performed. A total of 1 minute 8 seconds fluoroscopic time was utilized. There is abrupt obstruction of the distal esophagus near the junction of the mid and distal third. No contrast passes beyond this location. It is uncertain if this is secondary to mass versus a possibility of a food bolus. IMPRESSION: Distal esophageal obstruction. Dictated by: Dictated on workstation # [id number]
--- NOTE | 2019-05-13 13:16 | Consultation - Surgery ---
[facility] 05/13/19 1316: History of Present Illness History of Present Illness Patient Consulted On(taj/time) 05/13/19 13:14 Date Seen by Provider: May 13, 2019 Time Seen by Provider: 13:14 Reason for Visit: Dysphasia History of Present Illness This is a 28 y/o female who presented to the ED with dysphasia to both solids and liquids and regurgitation of anything she eats. Does not have any associated sx. States she has been having dysphasia w/ solid foods, especially meats, for the past year and that it suddenly got worse on Thursday (2 days) and that she has not been able to keep anything down since then. Denies any precipitating events. Denies any other sx. Denies any known medical hx. Denies taking medications on regular basis. Denies any known drug allergies. Allergies and Home Medications Allergies Coded Allergies: No Known Drug Allergies (Unverified , 07/27/11) Home Medications Docusate Sodium 100 Mg Capsule, 100 MG PO BID Prescribed by: OSITO SUMMERS on 10/10/16 0857 Ferrous Sulfate 325 Mg Tablet, 325 MG PO DAILY@0700 Prescribed by: OSITO SUMMERS on 10/10/16 0857 Hydrocodone Bit/Acetaminophen 1 Each Tablet, 1-2 TAB PO Q6H PRN for PAIN- MODERATE Prescribed by: OSITO SUMMERS on 10/10/16 0857 Ibuprofen 600 Mg Tablet, 600 MG PO Q6HR PRN for PAIN-MILD Prescribed by: OSITO SUMMERS on 10/10/16 0857 Pantoprazole Sodium 40 Mg Tablet.dr, 40 MG PO DAILY Prescribed by: ED MORTON on 05/13/19 1557 Sucralfate 1 Gm Tablet, 1 GM PO QID Prescribed by: ED MORTON on 05/13/19 1557 Sulfamethoxazole/Trimethoprim 1 Each Tablet, 1 EACH PO BID Prescribed by: ED MORTON on 05/13/19 1600 Past Mfxkqrs-Cdzmyv-Wrftnl Hx Patient Social History Alcohol Use: Denies Use Recreational Drug Use: No Smoking Status: Never a Smoker Recent Foreign Travel: No Contact w/Someone Who Travel: No Recent Infectious Disease Expo: No Recent Hopitalizations: No Immunizations Up To Date PED Vaccines UTD: Yes Seasonal Allergies Seasonal Allergies: No Surgeries History of Surgeries: Yes Surgeries: Orthopedic Respiratory History of Respiratory Disorde: No Cardiovascular History of Cardiac Disorders: No Neurological History of Neurological Disord: No Genitourinary History of Genitourinary Disor: No Gastrointestinal History of Gastrointestinal Di: No Musculoskeletal History of Musculoskeletal Dis: No Endocrine History of Endocrine Disorders: No HEENT History of HEENT Disorders: No Cancer History of Cancer: No Psychosocial History of Psychiatric Problem: No Integumentary History of Skin or Integumenta: No Blood Transfusions History of Blood Disorders: No Adverse Reaction to a Blood Tr: No Family Medical History Family Medial History: Diabetes mellitus 19 FATHER (father.) Review of Systems-General Constitutional: No chills, No fever EENTM: other (dysphagia); No throat pain Respiratory: No cough, No hemoptysis, No short of breath Cardiovascular: No chest pain, No palpitations Gastrointestinal: No abdominal pain, No constipation, No diarrhea; dysphagia; No hematemesis, No nausea; vomiting (regurgitation) : No Skin: No pruritus, No rash Physical Exam-General Problems Physical Exam Vital Signs Vital Signs - First Documented 05/13/19 10:43 Temp 36.8 Pulse 111 Resp 18 B/P (MAP) 136/99 (111) Pulse Ox 96 O2 Delivery Room Air Capillary Refill : Less Than 3 Seconds General Appearance: WD/WN, no apparent distress, other (pt appears to have some cognitive deficits when aswering questions) HEENT: PERRL/EOMI, normal ENT inspection, other (did not notice any obvious abnormalities to throat) Respiratory: chest non-tender, no respiratory distress, no accessory muscle use Cardiovascular: regular rate, rhythm Gastrointestinal: non tender, soft, no organomegaly, no pulsatile mass Extremities: no calf tenderness, normal capillary refill Neurologic/Psychiatric: site supervising technical operator II-XII nml as tested, alert, oriented x 3 Skin: normal color, warm/dry Lymphatic: no adenopathy Data Review Labs Laboratory Tests 05/13/19 10:52: White Blood Count 15.6H, Red Blood Count 4.89, Hemoglobin 14.7, Hematocrit 44, Mean Corpuscular Volume 90, Mean Corpuscular Hemoglobin 30, Mean Corpuscular Hemoglobin Concent 33, Red Cell Distribution Width 12.9, Platelet Count 383, Mean Platelet Volume 9.5, Neutrophils (%) (Auto) 83H, Lymphocytes (%) (Auto) 11L , Monocytes (%) (Auto) 7, Eosinophils (%) (Auto) 0, Basophils (%) (Auto) 0, Neutrophils # (Auto) 12.8H, Lymphocytes # (Auto) 1.6, Monocytes # (Auto) 1.1H, Eosinophils # (Auto) 0.0, Basophils # (Auto) 0.0, Neutrophils % (Manual) 87, Lymphocytes % (Manual) 8, Monocytes % (Manual) 2, Eosinophils % (Manual) 0, Basophils % (Manual) 0, Band Neutrophils 3, Blood Morphology Comment NORMAL, Urine Color YELLOW, Urine Clarity CLEAR, Urine pH 5.5, Urine Specific Wilson >=1.030, Urine Protein 2+H, Urine Glucose (UA) NEGATIVE, Urine Ketones 1+H, Urine Nitrite NEGATIVE, Urine Bilirubin 2+H, Urine Urobilinogen 1.0, Urine Leukocyte Esterase TRACEH, Urine RBC (Auto) 3+H, Urine RBC 2-5H, Urine WBC 5-10H , Urine Squamous Epithelial Cells 25-50H, Urine Crystals NONE, Urine Bacteria LARGEH, Urine Casts NONE, Urine Mucus MODERATEH, Urine Culture Indicated YES, Sodium Level 142, Potassium Level 4.4, Chloride Level 105, Carbon Dioxide Level 22, Anion Gap 15H, Blood Urea Nitrogen 22H, Creatinine 1.17, Estimat Glomerular Filtration Rate 54, BUN/Creatinine Ratio 19, Glucose Level 113H, Calcium Level 10.5H, Corrected Calcium , Total Bilirubin 1.2H, Aspartate Amino Transf (AST/S GOT) 20, Alanine Aminotransferase (ALT/SGPT) 36, Alkaline Phosphatase 72, Total Protein 8.7H, Albumin 5.0H, Serum Test, Qualitative NEGATIVE Assessment/Plan Assessment/Plan Assessment/Plan Dysphasia Barium swallow shows distal esophageal obstruction 2/2 mass vs food bolus Will perform EGD Will follow ED MORTON DO 05/13/19 1606: History of Present Illness History of Present Illness History of Present Illness Seen and evaluated in ED. Consult requested by Ernesto Lara for esophageal obstruction. patient is a 28 year old female who has been having problems with dysphagia for about a year. Patient was having problems withi solids and liquids. Patient last 3 days has not been able to eat or drink anything. It would come right back up. Last thing she was able to eat was Thursday evening. Patient is not having any abdominal pain. Denies fever sweats chills shortness of breath or chest pain. Had a barium swallow showing esophageal obstruction. Allergies and Home Medications Allergies Coded Allergies: No Known Drug Allergies (Unverified , 07/27/11) Home Medications Docusate Sodium 100 Mg Capsule, 100 MG PO BID Prescribed by: OSITO SUMMERS on 10/10/16 08 Ferrous Sulfate 325 Mg Tablet, 325 MG PO DAILY@0700 Prescribed by: OSITO SUMMERS on 10/10/16 0857 Hydrocodone Bit/Acetaminophen 1 Each Tablet, 1-2 TAB PO Q6H PRN for PAIN-MO DERATE Prescribed by: OSITO SUMMERS on 10/10/16 08 Ibuprofen 600 Mg Tablet, 600 MG PO Q6HR PRN for PAIN-MILD Prescribed by: OSITO SUMMERS on 10/10/16 08 Pantoprazole Sodium 40 Mg Tablet.dr, 40 MG PO DAILY Prescribed by: ED MORTON on 05/13/19 155 Sucralfate 1 Gm Tablet, 1 GM PO QID Prescribed by: ED MORTON on 05/13/19 155 Sulfamethoxazole/Trimethoprim 1 Each Tablet, 1 EACH PO BID Prescribed by: ED MORTON on 05/13/19 1600 Patient Home Medication List Home Medication List Reviewed: Yes Past Scuisct-Vnsmlo-Prazsn Hx Reviewed Nursing Assessment Reviewed/Agree w Nursing PMH: Yes Family Medical History Significant Family History: No Pertinent Family Hx Family Medial History: Diabetes mellitus 19 FATHER (father.) Review of Systems-General Constitutional: No chills, No diaphoresis, No fever EENTM: other (dysphagia solids and liquids); No ear pain, No blurred vision Respiratory: No hemoptysis Gastrointestinal: dysphagia; No hematemesis; nausea, vomiting : No Skin: No change in color, No change in hair/nails, No pruritus, No rash Psychiatric/Neurological: Denies Anxiety, Denies Depressed, Denies Emotional Problems Physical Exam-General Problems Physical Exam General Appearance: no apparent distress HEENT: PERRL/EOMI, normal ENT inspection, pharynx normal Neck: non-tender, supple, normal inspection Respiratory: chest non-tender, no respiratory distress, no accessory muscle use Cardiovascular: regular rate, rhythm Gastrointestinal: non tender, soft, no organomegaly, no pulsatile mass Rectal: deferred Back: normal inspection, no CVA tenderness, no vertebral tenderness Extremities: no calf tenderness Neurologic/Psychiatric: site supervising technical operator II-XII nml as tested, alert, oriented x 3 Skin: normal color, warm/dry Lymphatic: no adenopathy Assessment/Plan Assessment/Plan Assessment/Plan dysphagia esophageal obstruction nausea vomiting UTI discussed risks and benefits of EGD for evaluation and all other indicated procedures understand and wish to proceed NPO Will need Protonix carafate bactrim Supervisory-Addendum Brief Verification & Attestation Participated in pt care: history, MDM, physical Personally performed: exam, history, MDM, supervision of care Care discussed with: Medical Student Procedures: n/a Results interpretation: Verified all documentation Verification and Attestation of Medical Student E/M Service A medical student performed and documented this service in my presence. I reviewed and verified all information documented by the medical student and made modifications to such information, when appropriate. I personally performed the physical exam and medical decision making. Ed Morton, May 13, 2019,16:14 [facility] May 13, 2019 13:16 ED MORTON DO May 13, 2019 16:06
[2019-05-13] MEDS ORDERED: LACTATED RINGERS 1,000 ML IV STA (13:17)
[2019-05-13] MEDS ORDERED: SEVOFLURANE (ULTANE) 15 ML INHAL SOLN ONE ×2 (13:23→15:20)
[2019-05-13] MEDS ORDERED: MIDAZOLAM 2 MG/2 ML (VERSED) VIAL ONE (13:24)
[2019-05-13] MEDS ORDERED: DEXAMETHASONE 10 MG/ML (DECADRON) 1 ML VIAL ONE (13:24)
[2019-05-13] MEDS ORDERED: proPOfol 200 MG/20 ML (DIPRIVAN) VIAL IV ONE (13:24)
[2019-05-13] MEDS ORDERED: ONDANSETRON 4 MG/2 ML (SDV) Z0FRAN ONE (13:24)
[2019-05-13] MEDS ORDERED: fentaNYL INJECTION 100 MCG/2 ML AMP ONE (13:24)
[2019-05-13] MEDS ORDERED: SUCCINYLCHOLINE INJ 100 MG/5 ML SYR ONE (13:24)
[2019-05-13] MEDS ORDERED: LIDOCAINE PF 2% 5 ML (XYLOCAINE) VIAL ONE (13:27)
[2019-05-13] MEDS ORDERED: HURRICAINE EXT TUBE (BENZOCAINE) XX PRN (13:30)
[2019-05-13] MEDS ORDERED: ROCURONIUM 10 MG/ML 5 ML SYRINGE IV ONE (13:38)
[2019-05-13] MEDS ORDERED: LACTATED RINGERS 1,000 ML IV ONE (14:44)
--- NOTE | 2019-05-13 15:23 | Anesthesia-General Post-Op ---
General Patient Condition Mental Status/LOC: Same as Preop Cardiovascular: Satisfactory Nausea/Vomiting: Absent Respiratory: Satisfactory Pain: Controlled Complications: Absent Post Op Complications Complications None Follow Up Care/Instructions Patient Instructions None needed. Anesthesia/Patient Condition Patient Condition Patient is doing well, no complaints, stable vital signs, no apparent adverse anesthesia problems. No complications reported per nursing. HECTOR BURKETT CRNA May 13, 2019 15:23
--- NOTE | 2019-05-13 15:52 | Progress Note-Post Operative ---
Post-Operative Progess Note Surgeon (s)/Consumer Loan Officer (s) Surgeon ED MORTON DO Consumer Loan Officer: na Pre-Operative Diagnosis esophageal obstruction Post-Operative Diagnosis esophageal obstruction, ge stricture Procedure & Operative Findings Date of Procedure 05/13/19 Procedure Performed/Findings egd c removal of esophageal obstruction/food bolus, dilation of ge stricture Anesthesia Type gen Estimated Blood Loss Estimated blood loss (mL): none Specimens/Packing Specimens Removed na ED MORTON DO May 13, 2019 15:52
[2019-05-13] MEDS ORDERED: SUCR1TAB36 PO (15:57)
[2019-05-13] MEDS ORDERED: PANT40TA2 PO (15:57)
--- NOTE | 2019-05-13 15:58 | Discharge Inst-Simple/Standard ---
Discharge Inst-Standard Discharge Medications New, Converted or Re-Newed RX: Call to Patients Pharmacy Patient Instructions/Follow Up Plan of Care/Instructions/FU: 2 weeks Veronica Activity as Tolerated: Yes Discharge Diet: Liquid Diet (1 week then advance to puree diet.) ED MORTON DO May 13, 2019 15:58
[2019-05-13] MEDS ORDERED: SULF1TAB35 PO (16:00)
--- NOTE | 2019-05-14 00:04 | OPERATIVE REPORT ---
DATE OF SERVICE: 05/13/2019 PREOPERATIVE DIAGNOSIS: Esophageal obstruction. POSTOPERATIVE DIAGNOSES: Esophageal obstruction and gastroesophageal stricture. SURGEON: Pankaj Martin DO ANESTHESIA: General. PROCEDURE: EGD with removal of esophageal obstruction and food bolus, and dilatation of gastroesophageal stricture. ESTIMATED BLOOD LOSS: None. COMPLICATIONS: None. INDICATIONS: The patient is a 28-year-old female with esophageal obstruction secondary to food bolus. Last time she ate was Thursday evening, which was 3 days ago. She has been vomiting up anything that she drinks or eats. She has been unable to keep anything down. Therefore, she went to the Emergency Department for further evaluation. She had a barium swallow demonstrating esophageal obstruction. The patient was discussed risks and benefits of procedure and wished to proceed. Consent was signed in the chart. DESCRIPTION OF PROCEDURE: The patient was taken to the endoscopy suite, placed in the supine position. The patient had general anesthetic with endotracheal tube. Once this was secured, timeout was performed. A gastroscope was inserted through the mouth into the distal esophagus, which had some fluid within it, which were suctioned. As the scope was continued to be inserted, noted to have significant food bolus in the distal portion of the esophagus. Using multiple techniques such as forceps, snare and Burks basket multiple attempts were continued to be made to remove the food bolus. A total of one hour was used to continue to remove the food bolus with multiple insertions and retractions. Once enough of the food bolus was removed, the scope was able to be passed it down to the GE junction, which was strictured down. The scope was able to be passed through this area and the stomach had normal appearance. The scope was continued to be advanced all the way to the stomach and into the duodenum, which had normal appearance. Scope was then slowly retracted back and retroflexed in the stomach, noting no other pathology. Scope was returned to its normal position, slowly withdrawn to the distal esophagus. All food particulate had been evacuated from the esophagus. Using a balloon dilator, this was then placed across the GE junction and the stricture site is serially dilated to [address] up to a 12 mm. Once it was dilated to 12, further dilations were aborted and the scope was then slowly retracted back until completely removed just noting significant erythematous changes to the esophageal lining due to the food bolus. Scope was slowly retracted back to completely remove noting no other pathology. RECOMMENDATIONS: At this point, the patient will be started on Protonix and Carafate. She will be kept on a liquid diet. The patient will follow up in the office in 2 weeks. The patient will need serial dilations to try and improve her dysphagia symptoms. Job ID: [id number] DocumentID: [id number] Dictated Date: 05/13/2019 18:49:46 Piece Dye Worker Date: 05/14/2019 00:04:14 Dictated By: DO BITA JUARES
== END 2019-05-13 16:58 | disposition home or self-care (01) ==
LOC: EDUNIT# 10:35 → ER 10:36 → ENDO 13:00
PROVIDERS: ATTEND Surgery
DX: K22.2 Esophageal obstruction (principal); T18.128A Food in esophagus causing other injury, initial encounter; N30.01 Acute cystitis with hematuria; Z79.899 Other long term (current) drug therapy; Z83.3 Family history of diabetes mellitus
CPT/HCPCS: 36415; 74220; 80053; 81000; 84703; 85007; 85027; 87088; 96361; 96374

== ENCOUNTER 2019-08-19 08:03 | Outpatient (RCR) | payer MEDICAID ==
[~2019-08-19] VITALS: Ht 164 cm; Wt 84.1 kg
[~2019-08-19 08:03] MED LIST changes: +PANT40TA2 PO; +PANT40TA3 PO; +SUCR1TAB36 PO; +SULF1TAB35 PO
== END 2019-08-19 14:02 | disposition home or self-care (01) ==
LOC: PREOP 08:03
PROVIDERS: ATTEND Surgery
DX: Z01.812 Encounter for preprocedural laboratory examination (principal); Z11.59 Encounter for screening for other viral diseases; R13.10 Dysphagia, unspecified
CPT/HCPCS: 87635